=== PATIENT | male | born 1985 | race Caucasian/White ===

== ENCOUNTER 2020-06-25 11:05 | Emergency (ER) | payer SELFPAY ==
[~2020-06-25] VITALS: Ht 172.7 cm; Wt 98.0 kg
--- NOTE | 2020-06-25 11:15 | NUR ---
PROVIDER AT BEDSIDE FOR ASSESSMENT
--- NOTE | 2020-06-25 11:34 | NUR ---
SECURITY AT BEDSIDE W/DEPUTYS. PT REMOVED FROM HANDCUFFS AND PLACED IN 4POINT RESTRAINTS. PT PERSONAL BELONGINGS PLACED IN BAG W/LABLE AND PLACED IN ED LOCKER. PT ARRIVED W/[place] AND CHECK FROM [facility]. PT STATES "I ONLY HAD $40.00 [place]. THAT OTHER MONEY AND THAT CHECK ARE NOT MINE" PT EDUCATED THAT SECURITY WILL PLACE [place] AND CHECK IN A SECURED LOCATION. PAPERWORK DOCUMENTED PER PROTOCOL W/SECURITY AND RN SIGNATURE AT BEDSIDE W/PT PRESENT
--- NOTE | 2020-06-25 11:54 | NUR ---
DAVON AT BEDSIDE FOR ASSESSMENT. PT STATES HE IS TOO TIRED FOR ASSESSMENT AT THIS TIME
[2020-06-25 11:56] LABS: BASOPHILS % (AUTO) 0 % (0-1); EOSINOPHILS % (AUTO) 1 % (1-7); LYMPHOCYTES % (AUTO) 18 % (22-44); MEAN CORPUSCULAR HEMOGLOBIN 34.9 pg (27.5-34.5); MEAN CORPUSCULAR HGB CONC 36.4 g/dL (33.2-36.2); MEAN PLATELET VOLUME 8.1 fL (7.4-10.4); MONOCYTES % (AUTO) 11 % (2-9); NEUTROPHILS % (AUTO) 70 % (42-75); PLATELET COUNT 346 x10^3/uL (130-400); RED BLOOD COUNT 4.37 x10^6/uL (4.38-5.82); RED CELL DISTRIBUTION WIDTH 12.3 % (9.4-14.8)
[2020-06-25 12:01] LABS: ALANINE AMINOTRANSFERASE 53 U/L (12-78); ALBUMIN 4.2 g/dL (3.4-5.0); ANION GAP 12 mmol/L (5-15); CHLORIDE 103 mmol/L (98-107); CREATININE 1.41 mg/dL (0.7-1.3)
[2020-06-25 12:02] LABS: ALKALINE PHOSPHATASE 63 U/L (45-117); TOTAL PROTEIN 7.4 g/dL (6.4-8.2)
[2020-06-25 12:05] LABS: SALICYLATE LEVEL < 1.7 mg/dL (2.8-20.0)
--- NOTE | 2020-06-25 12:18 | NUR ---
PT CALM AND RESTING. LEFT ARM AND RIGHT LEG UNRESTRAINED. WATER PROVIDED. PT EDUCATED THAT URINE SAMPLE IS NEEDED. URINAL PROVIDED AND W/IN REACH. PSA W/IN VISUAL DISTANCE
[2020-06-25 12:23] LABS: MD NO
--- NOTE | 2020-06-25 13:07 | NUR ---
SECURITY AT BEDSIDE TO RELEASE RESTRAINTS. RESTRAINTS REMOVED. PT RESTING ON [facility].
--- NOTE | 2020-06-25 13:13 | NUR ---
PT SITTING UP ON GURNEY WITH FOOD TRAY ON LAP. VSS. NAD. PSA W/IN VISIBILTY.
[2020-06-25] MEDS ORDERED: POTASSIUM CHLORIDE 10% 40 MEQ/30 ML UDC PO ONE (13:30)
--- NOTE | 2020-06-25 13:49 | NUR ---
PT CALM AND RESTING ON GURNEY. VSS. NAD. PSA W/IN VISIBLE DISTANCE
--- NOTE | 2020-06-25 14:03 | NUR ---
PT CALM AND RESTING ON GURNEY. WARM BLANKETS PROVIDED. PT REMINDED THAT A URINE SAMPLE IS NEEDED. PT STATES "I DONT HAVE TO PEE YET". VSS. NAD. PSA W/I VISIBLE DISTANCE
[2020-06-25] MEDS ORDERED: POTASSIUM CHLORIDE 20 MEQ TAB.ER.PRT ONE (14:30)
[2020-06-25] MEDS ORDERED: POTASSIUM CHLORIDE 20 MEQ TAB.ER.PRT PO ONE (15:00)
--- NOTE | 2020-06-25 15:47 | NUR ---
PT UP TO SIDE OF BED TO USE URINAL W/UNSTEADY GAIT. UA COLLECTED. PT ASSISTED BACK TO BED. MONITORS CONNECTED. PT CONTINUES TO BE DROWSY AND CALM
[2020-06-25 15:48] LABS: MICROSCOPIC AUTO
[2020-06-25 15:57] LABS: AMPHETAMINE SCREEN, URINE Negative (Negative); BARBITURATE SCREEN, URINE Negative (Negative); BENZODIAZEPINE SCREEN, URINE Negative (Negative); CANNABINOID SCREEN, URINE Negative (Negative); COCAINE SCREEN, URINE Negative (Negative); METHADONE SCREEN, URINE Negative (Negative); OPIATE SCREEN, URINE Negative (Negative)
--- NOTE | 2020-06-25 17:25 | NUR ---
PT RESTING ON GURNEY. PSA W/IN VISUAL DISTANCE. NAD
--- NOTE | 2020-06-25 18:23 | NUR ---
PT CALM AND SITTING UP ON GURNEY EATING DINNER. VSS. NAD. PSA W/IN VISUAL DISTANCE. CALL LIGHT W/IN REACH
--- NOTE | 2020-06-25 19:01 | NUR ---
REPORT GIVEN TO RAMON TATE
--- NOTE | 2020-06-25 19:06 | NUR ---
REPORT RECEIVED FROM KARRI TATE. ASSUMING CARE AT THIS TIME. PT RESTING COMFORTABLY ON GURNEY. RESP EVEN AND UNLABORED. PT HAS DINNER AT BEDSIDE AND EATS INTERMITTENTLY. PT IN SIGHT OF SITTER. ROOM PARTIALLY SECURE D/T MONITORING.
--- NOTE | 2020-06-25 20:35 | NUR ---
PT SLEEPING ON GURNEY. NADN. RESP EVEN AND UNLABORED. PT IN SIGHT OF SITTER.
--- NOTE | 2020-06-25 21:56 | NUR ---
PT SLEEPING ON GURNEY. NADN. RESP EVEN AND UNLABORED. PT IN SIGHT OF SITTER.
--- NOTE | 2020-06-25 22:04 | NUR ---
REPORT GIVEN TO THAO TATE.
--- NOTE | 2020-06-25 22:20 | NUR ---
Report received from BEBETO Ugalde. This RN to assume care. Patient resting in [facility]. Respirations even and unlabored. Room secured, belongings locked in cabinet. Sitter outside.
--- NOTE | 2020-06-25 23:42 | NUR ---
Patient resting in gurney. Respirations even and unlabored. Room secured, belongings locked in cabinet. Sitter outside.
--- NOTE | 2020-06-26 00:20 | NUR ---
Patient resting in gurney. Respirations even and unlabored. Room secured, belongings locked in cabinet. Sitter outside.
--- NOTE | 2020-06-26 01:22 | NUR ---
Patient resting in gurney. Respirations even and unlabored. Room secured, belongings locked in cabinet. Sitter outside.
--- NOTE | 2020-06-26 02:30 | NUR ---
Patient resting in gurney. Respirations even and unlabored. Room secured, belongings locked in cabinet. Sitter outside.
--- NOTE | 2020-06-26 03:36 | NUR ---
Patient resting in gurney. Respirations even and unlabored. Room secured, belongings locked in cabinet. Sitter outside.
--- NOTE | 2020-06-26 04:11 | NUR ---
Patient asking about POC. Discussed plan with patient that he is to rest until 0700 then be reeval by ERP. Patient denies SI/HI at this time. He is calm and cooperative. After reeval, patient to be DC and given cab voucher to bus station; patient is planning on going back to [place]. Patient agreed to plan. Room secured, belongings locked in cabinet. Sitter outside.
--- NOTE | 2020-06-26 05:40 | NUR ---
Patient resting in gurney. Respirations even and unlabored. Room secured, belongings locked in cabinet. Sitter outside.
[2020-06-26 06:31] VITALS: BP 112/69
--- NOTE | 2020-06-26 06:32 | NUR ---
Patient discharge instructions given. All questions and concerns addressed. Patient ambulatory with a steady gait. Security signed in patient belongings to patient; all belongings with patient. Taxi voucher given.
== END 2020-06-26 06:34 | disposition home or self-care (01) ==
LOC: EDBD 11:05 → ED 06-26 04:50
DX: F15.959 Other stimulant use, unspecified with stimulant-induced psychotic disorder, unspecified (principal); G93.40 Encephalopathy, unspecified
CPT/HCPCS: 36415; 80053; 80299; 80307; 80320; 80329; 81001; 85025; 99284; 99285; G0480